=== PATIENT | female | born 1955 | race Caucasian/White ===

== ENCOUNTER 2023-08-07 12:40 | Emergency (ER) | payer OTHER, MEDICAID ==
[~2023-08-07] VITALS: Ht 152.4 cm; Wt 79.5 kg
[~2023-08-07 12:40] MED LIST: ATEN25TA; AVONEX; BONIVA; COUM1TAB17; ZOCO20TA
[2023-08-07] MEDS ORDERED: ATOR1TAB21 PO (12:55)
[2023-08-07] MEDS ORDERED: MESA800T8 PO (12:55)
[2023-08-07] MEDS ORDERED: TOPR25TA PO (12:55)
[2023-08-07] MEDS ORDERED: AMOX875T2 PO (16:31)
[2023-08-07 16:37] VITALS: BP 141/75; TEMP 97.5; O2SAT 97
== END 2023-08-07 16:38 | disposition home or self-care (01) ==
LOC: M ED 12:40
DX: N30.00 Acute cystitis without hematuria (principal); G35 Multiple sclerosis; I10 Essential (primary) hypertension; J45.909 Unspecified asthma, uncomplicated; Z86.718 Personal history of other venous thrombosis and embolism; Z79.01 Long term (current) use of anticoagulants; Z88.1 Allergy status to other antibiotic agents

== ENCOUNTER 2025-08-08 09:25 | Observation (INO) | payer OTHER, MEDICAID ==
[~2025-08-08] VITALS: Ht 152.4 cm; Wt 90.2 kg
[~2025-08-08 09:25] MED LIST changes: +AMOX875T2 PO; +ATOR1TAB21 PO; +MESA800T8 PO; +TOPR25TA PO
[2025-08-08 10:03] LABS: BASO # 0.0 10^3/uL (0.0-0.2); BASO % 0.4 % (0.0-1.0); EOS # 0.0 10^3/uL (0.0-0.5); EOS % 0.4 % (0.0-3.0); LYMPH # 1.9 10^3/uL (1.5-5.0); LYMPH % 35.6 % (24.0-44.0); MONO # 0.7 10^3/uL (0.0-0.8); MONO % 12.5 % (2.0-8.0); NEUTROPHILS # 2.6 10^3/uL (1.5-8.5); NEUTROPHILS % 50.7 % (36.0-66.0); PLATELET COUNT, AUTOMATED 249 10^3/uL (150-450)
[2025-08-08 10:26] LABS: ALT/SGPT 43.0 U/L (7.0-40); AST/SGOT 34.0 U/L (<34); CALCIUM LEVEL 8.7 MG/DL (8.3-10.6); CARBON DIOXIDE LEVEL 30.0 MMOL/L (20-31); CHLORIDE LEVEL 105.0 MMOL/L (98-107); CREATININE FOR GFR 0.82 MG/DL (0.55-1.30); GLOMERULAR FILTRATION RATE 76.4 (>39); POTASSIUM SERUM 3.6 MMOL/L (3.5-5.1); SODIUM LEVEL 143.0 MMOL/L (136-145)
[2025-08-08] MEDS ORDERED: DOXY-440 PO (11:19)
[2025-08-08] MEDS ORDERED: ISOVUE-370 76% 100 ML VIAL As Ordered ONE (11:36)
[2025-08-08] MEDS: NS (Normal Saline) 0.9% 2,000 ML in IV 1 EA IV STA (11:40)
[2025-08-08] MEDS: IPRATROPIUM 0.5 MG/ALBUTEROL 2.5 MG INH SOL UD 3 ML NEB ONE (11:45)
[2025-08-08] MEDS: ALBUTEROL SULFATE 2.5 MG/0.5 ML INH CONCENTRATE NEB SOLN INH ONE (11:46)
[2025-08-08 14:42] VITALS: O2SAT 92
[2025-08-08] MEDS ORDERED: METO1TAB7 PO (16:02)
[2025-08-08] MEDS ORDERED: WARF-23 PO (16:02)
[2025-08-08] MEDS ORDERED: OXYC7.5T3 PO (16:08)
[2025-08-08] MEDS ORDERED: VENTAER INH (16:08)
[2025-08-08] MEDS ORDERED: FEZO45TA PO (16:08)
[2025-08-08] MEDS ORDERED: LISI20TA33 PO (16:08)
[2025-08-08] MEDS ORDERED: VENL75TA2 PO (16:08)
[2025-08-08] MEDS ORDERED: TRAM50TA2 PO (16:08)
[2025-08-08] MEDS: hydrALAZINE 20 MG/ML 1 ML VIAL IV ONE (16:25)
[2025-08-08] MEDS ORDERED: WARF4TAB52 PO ×2 (16:55)
[2025-08-08] MEDS ORDERED: HOME MED LIST COMPLETE! XX SCH (17:00)
[2025-08-08] MEDS ORDERED: ALBUTEROL 90 MCG/ACT 8 GM HFA INHALER INH PRN (18:30)
[2025-08-08] MEDS ORDERED: traMADol 50 MG TAB PO PRN (18:30)
[2025-08-08] MEDS ORDERED: PILL CUTTER 1 EACH XX PRN (18:50)
[2025-08-08] MEDS: HYDROmorphone 2 MG TAB PO ONE (19:40)
[2025-08-08 20:19] LABS: INR 2.28
[2025-08-08] MEDS: ATORVASTATIN 20 MG TAB PO SCH (21:53)
[2025-08-08] MEDS: DOXYCYCLINE HYCLATE 100 MG TABLET PO SCH (21:53)
[2025-08-08] MEDS: BENZONATATE 100 MG CAPSULE PO SCH (21:53)
[2025-08-08] MEDS: METOPROLOL SUCC. 50 MG *XL* TAB PO SCH (21:54)
[2025-08-08] MEDS: **hydrALAZINE** 10 MG TAB PO SCH (21:55)
[2025-08-08] MEDS: VENLAFAXINE 37.5 MG TAB PO SCH (22:01)
[2025-08-08] MEDS: WARFARIN SOD 5MG TAB PO SCH (22:02)
[2025-08-08] MEDS: DEXTROMETHORPHAN 60 MG/10 ML SUSP 90 ML BTL PO SCH (22:02)
[2025-08-08] MEDS: WARFARIN SOD 1MG TAB PO SCH (22:02)
[2025-08-08 22:23] VITALS: BP 198/100; TEMP 98.1; O2SAT 93
[2025-08-08 23:36] VITALS: BP 148/82
[2025-08-09] VITALS (9 sets, daily range): BP systolic 144–198; BP diastolic 73–98; TEMP 96.7–98.1; O2SAT 92–99
[2025-08-09 06:25] LABS: CALCIUM LEVEL 8.3 MG/DL (8.3-10.6); CARBON DIOXIDE LEVEL 27 MMOL/L (20-31); CHLORIDE LEVEL 108 MMOL/L (98-107); CREATININE FOR GFR 0.67 MG/DL (0.55-1.30); GLOMERULAR FILTRATION RATE > 90.0 (>39); POTASSIUM SERUM 4.4 MMOL/L (3.5-5.1); SODIUM LEVEL 144 MMOL/L (136-145)
[2025-08-09 06:50] LABS: INR 2.26
[2025-08-09] MEDS: guaiFENesin/CODEINE SYRUP 5 ML UDC PO PRN (08:51)
[2025-08-09] MEDS: **hydrALAZINE** 10 MG TAB PO ONE ×2 (11:12→14:32)
[2025-08-09] MEDS ORDERED: HYDR25TA87 PO (14:54)
[2025-08-09] MEDS ORDERED: PRED20TA PO (14:54)
[2025-08-09] MEDS ORDERED: AMOX875T2 PO (14:54)
[2025-08-09] MEDS: **hydrALAZINE** 50 MG TAB PO SCH (20:19)
[2025-08-09] MEDS ORDERED: WARFARIN SOD 7.5MG TAB PO SCH (21:00)
[2025-08-10] MEDS ORDERED: **hydrALAZINE** 50 MG TAB PO SCH
[2025-08-10 05:11] VITALS: BP 185/75; TEMP 98.1; O2SAT 94
[2025-08-10 06:16] LABS: INR 3.22
[2025-08-10 08:33] VITALS: BP 186/86; O2SAT 94
[2025-08-10 09:06] VITALS: BP 186/86
[2025-08-10 10:03] VITALS: BP 152/71
[2025-08-10] MEDS: ALBUTEROL SULFATE 2.5 MG/0.5 ML INH CONCENTRATE NEB SOLN NEB PRN (11:28)
[2025-08-10 11:46] VITALS: BP 147/72; TEMP 96.8; O2SAT 92
[2025-08-10] MEDS ORDERED: HYDR5TAB PO (15:07)
[2025-08-11] MEDS ORDERED: WARFARIN SOD 1MG TAB PO SCH (17:00)
== END 2025-08-10 13:22 | disposition home or self-care (01) ==
LOC: M ED 09:25 → M ED INP 18:53 → M MS4PR 22:24
PROVIDERS: ADMIT Student in an Organized Health Care Education/Training Program; ATTEND Student in an Organized Health Care Education/Training Program
DX: J20.9 Acute bronchitis, unspecified (principal); B97.81 Human metapneumovirus as the cause of diseases classified elsewhere; R06.02 Shortness of breath; I10 Essential (primary) hypertension; Z86.718 Personal history of other venous thrombosis and embolism; K50.90 Crohn's disease, unspecified, without complications; M54.9 Dorsalgia, unspecified; G89.29 Other chronic pain; G62.9 Polyneuropathy, unspecified; Z89.411 Acquired absence of right great toe; Z90.79 Acquired absence of other genital organ(s); Z90.12 Acquired absence of left breast and nipple; Z90.49 Acquired absence of other specified parts of digestive tract; Z82.49 Family history of ischemic heart disease and other diseases of the circulatory system; Z79.01 Long term (current) use of anticoagulants; Z88.1 Allergy status to other antibiotic agents
CPT/HCPCS: 36415; 71045; 71275; 80048; 80076; 83605; 84145; 85025; 85610; 87070; 87205; 87486; 87581; 87633; 87798; 93005; 93041; 94640; 94760; 96361; 96374; 99285; G0378; J2919; Q9967